=== PATIENT | female | born 1945 | race Caucasian/White ===

== ENCOUNTER 2023-05-08 12:45 | Emergency (ER) | payer MEDICARE, SELFPAY ==
[2023-05-08 12:54] VITALS: BP 124/60; PULSE 74; RESP 16; TEMP 36.8; O2SAT 94; BMI 23.8
--- NOTE | 2023-05-08 15:56 | CT_ITS ---
[address] [address] Patient Name: JESSICA PATHAK MRN: [id number] date: 1945 Sex: F Assigned Patient Location: ER Current Patient Location: ER Accession/Order Number: [id number] Exam Date: 05/08/2023 17:15 Report Date: 05/08/2023 18:21 At the request of: EMILIE ROMERO Procedure: CT abdomen pelvis w con EXAMINATION: CT abdomen pelvis w con, 05/08/2023 2:15 PM PST HISTORY: Abd pain, N?V COMPARISON: None. TECHNIQUE: CT scan of the abdomen and pelvis was performed with IV contrast. CT dose reduction technique was used, including Automated Exposure Control. FINDINGS: Lung: No significant finding. Liver: Moderate intrahepatic bile duct dilation. Gallbladder: Mildly distended gallbladder. Mild pericholecystic edema. The common bile duct is dilated with transition at the ampulla. There is a small duodenal diverticulum at the ampulla. There are calcifications of the pancreatic head/neck parenchyma. No visualized obstructing gallstone or mass. Mildly dilated pancreatic duct. Spleen: No significant finding. Pancreas: As above. Adrenal glands: No significant finding. Kidneys, ureters and bladder: Multiple right-sided simple cyst. No hydronephrosis. Bladder is unremarkable. Bowel: No evidence of bowel obstruction. No findings of appendicitis. Peritoneum/retroperitoneum: No significant finding. Lymph nodes: No significant finding. Vessels: Heavy scattered atherosclerotic calcification. 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 Body wall: No significant finding. Reproductive: No significant finding. Bones: No significant finding. CT/CT abdomen pelvis w con IMPRESSION: Findings concerning for biliary obstruction. Common bile duct, gallbladder and intrahepatic bile ducts are dilated. Mild pericholecystic edema. Small diverticulum at the ampulla noted. No measurable suspicious mass. Sequela of chronic pancreatitis is present. Likely underlying benign or malignant stricture or choledocholithiasis. Correlate with biochemical markers and consider MRCP. Electronically authenticated by: SAMRA PEREA Date: 05/08/2023 18:21
--- NOTE | 2023-05-08 15:56 | ECG_ITS ---
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
--- NOTE | 2023-05-08 15:58 | ED.ABDPAIN1 ---
Documented by User: Ford Perkins MD 05/08/23 16:01 HPI - Abdominal Pain General Chief Complaint: Abdominal Pain Stated Complaint: STOMACH PAIN Time Seen by Provider: 05/08/23 15:50 Source: family Mode of arrival: Wheelchair History of Present Illness HPI narrative: 77-year-old female presents for abdominal pain. It started yesterday and possibly the day before yesterday and she threw up last night. She is not complaining of chest pain or fever or hematemesis. No diarrhea or constipation. family reports that she's had an issue with her gallbladder before and several months ago she was at a hospital in [place] and she was told that she had passed a gallstone into her bile duct. It is not clear about the outcome of that event. Related Data Allergies Allergy/AdvReac Type Severity Reaction Status Date / Time lisinopril Allergy Severe Verified 05/08/23 12:59 Review of Systems ROS Narrative A ten point review of systems is negative except as noted above. Exam Narrative Exam Narrative: Nurses note and vital signs reviewed and patient is not hypoxic. General: The patient appears well and in no apparent distress. Patient is resting comfortably on cart. Skin: Warm, dry, no pallor noted. There is no rash noted. Head: Normocephalic, atraumatic Eye: Normal conjunctiva, no drainage Ears, Nose, Mouth, and Throat: oral mucosa is moist. Nares patent. Cardiovascular: Regular Rate and Rhythm Respiratory: Patient is in no distress, no accessory muscle use, lungs are clear to auscultation, no wheezing, rales or rhonchi Back: non-tender GI: diffuse tenderness without distention. Musculoskeletal: The patient has no evidence of calf tenderness, no pitting edema, symmetrical pulses noted bilaterally Neurological: A&O, normal speech Psychiatric: Cooperative Constitutional Vital Signs, click to edit/add: Last Vital Signs Temp 98.3 F 05/08/23 12:54 Pulse 74 05/08/23 12:54 Resp 16 05/08/23 12:54 BP 124/60 05/08/23 12:54 Pulse Ox 94 L 05/08/23 12:54 O2 Del Method Room Air 05/08/23 15:39 Course Vital Signs Vital signs: Vital Signs Temperature 98.3 F 05/08/23 12:54 Pulse Rate 74 05/08/23 12:54 Respiratory Rate 16 05/08/23 12:54 Blood Pressure 124/60 05/08/23 12:54 Pulse Oximetry 94 L 05/08/23 12:54 Oxygen Delivery Method Room Air 05/08/23 12:54 Temperature 98.3 F 05/08/23 12:54 Pulse Rate 74 05/08/23 12:54 Respiratory Rate 16 05/08/23 12:54 Blood Pressure 124/60 05/08/23 12:54 Pulse Oximetry 94 L 05/08/23 12:54 Oxygen Delivery Method Room Air 05/08/23 15:39 MDM - Abdominal Pain Lab Data Labs: Lab Results 05/08/23 Range/Units 16:10 WBC 9.4 (4.0-11.0) 10^3/uL RBC 4.13 L (4.20-5.40) 10^6/uL Hgb 12.9 (12.0-16.0) g/dL Hct 38.8 (36.0-48.0) % MCV 93.9 (81.0-99.0) fL MCH 31.2 (26.7-34.0) pg MCHC 33.2 (29.9-35.2) g/dL RDW 13.9 (11.0-15.0) % Plt Count 125 L (150-450) 10^3/uL MPV 11.1 (9.5-13.5) fL Seg Neuts % (Manual) 74.0 Band Neutrophils % 8.0 H (0-5) % Lymphocytes % (Manual) 8.0 L (20.5-60.0) % Monocytes % (Manual) 8.0 (1.7-12.0) % Eosinophils % (Manual) 2.0 (0.9-7.0) % Basophils % (Manual) 0.0 L (0.2-2.0) % Neutrophils # (Manual) 6.95 H (1.4-6.5) 10^3/uL Band Neutrophils # 0.8 H (0.0-0.3) 10^3/uL Lymphocytes # (Manual) 0.75 L (1.20-3.80) 10^3/uL Monocytes # (Manual) 0.75 (0.30-0.80) 10^3/uL Eosinophils # (Manual) 0.18 (0.00-0.70) 10^3/uL Basophils # (Manual) 0.00 (0.00-0.10) 10^3/uL Anisocytosis 1+ Sodium 129 L (136-145) mmol/L Potassium 3.7 (3.5-5.1) mmol/L Chloride 94 L (98-107) mmol/L Carbon Dioxide 29.6 (21.0-32.0) mmol/L Anion Gap 9.1 BUN 22.0 H (7.0-18.0) mg/dL Creatinine 0.87 (0.55-1.02) mg/dL Est GFR ( Amer) >60 (>=60) Est GFR (Non-Af Amer) >60 (>=60) BUN/Creatinine Ratio 25.3 Glucose 242 H (74-106) mg/dL Calcium 9.7 (8.5-10.1) mg/dL Total Bilirubin 3.6 H (0.2-1.0) mg/dL Direct Bilirubin 2.9 H* (0.0-0.2) mg/dL AST 267 H (15-37) U/L ALT 482 H (14-59) U/L Alkaline Phosphatase 400 H (46-116) U/L Total Protein 7.9 (6.4-8.2) g/dL Albumin 3.1 L (3.4-5.0) g/dL Globulin 4.8 g/dL Albumin/Globulin Ratio 0.6 Amylase 91 (25-115) U/L Lipase 295.0 H (16.0-77.0) U/L Discharge Plan Discharge Chief Complaint: Abdominal Pain Clinical Impression: Bile duct obstruction, Acute cholecystitis Patient Disposition: [facility] Time of Disposition Decision: 22:15 [facility] Good Mode of Transportation: EMS Referrals: Physician,Non-Staff, [Primary Care Provider] - 1 week Documented by User: Hiro Guzmán MD 05/08/23 22:16 HPI - Abdominal Pain General Chief Complaint: Abdominal Pain Stated Complaint: STOMACH PAIN Time Seen by Provider: 05/08/23 15:50 Related Data Allergies Allergy/AdvReac Type Severity Reaction Status Date / Time lisinopril Allergy Severe Verified 05/08/23 12:59 Exam Constitutional Vital Signs, click to edit/add: Last Vital Signs Temp 98.3 F 05/08/23 12:54 Pulse 74 05/08/23 12:54 Resp 16 05/08/23 12:54 BP 124/60 05/08/23 12:54 Pulse Ox 94 L 05/08/23 12:54 O2 Del Method Room Air 05/08/23 15:39 Course Vital Signs Vital signs: Vital Signs Temperature 98.3 F 05/08/23 12:54 Pulse Rate 74 05/08/23 12:54 Respiratory Rate 16 05/08/23 12:54 Blood Pressure 124/60 05/08/23 12:54 Pulse Oximetry 94 L 05/08/23 12:54 Oxygen Delivery Method Room Air 05/08/23 12:54 Temperature 98.3 F 05/08/23 12:54 Pulse Rate 74 05/08/23 12:54 Respiratory Rate 16 05/08/23 12:54 Blood Pressure 124/60 05/08/23 12:54 Pulse Oximetry 94 L 05/08/23 12:54 Oxygen Delivery Method Room Air 05/08/23 15:39 MDM - Abdominal Pain MDM Narrative Medical decision making narrative: Signout note: Labs and imaging reviewed. Care was signed out to me with transfer pending. Patient seen and evaluated the bedside. Her abdomen is benign. Her vitals are stable. Her pain is controlled. Patient has a transaminitis, elevated bilirubin. She has a common bile duct is dilated on CT scan with evidence of acute cholecystitis. I was able to review through [facility]. 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 She has had two ERCPs in the past with inability to fully cannulate the distal duct. This was at [facility] in [place], where she reports she will never return. Given that we do not have gastrointestinal with capability for ERCP at this facility she will need transfer. She'll need surgical and gastrointestinal evaluation for likely ERCP rendezvous. Case was discussed including history, exam, diagnostic findings with JANES Velez who is taking call for [facility]. After they discussed the patient with general surgery there and accepted the patient to the hospitalist service (Dr. Nunez). Patient was transported to [facility] for continuing evaluation of her acute on chronic bile duct obstruction/acute cholecystitis. Hiro Guzmán DO, FAAEM Lab Data Labs: Lab Results 05/08/23 Range/Units 16:10 WBC 9.4 (4.0-11.0) 10^3/uL RBC 4.13 L (4.20-5.40) 10^6/uL Hgb 12.9 (12.0-16.0) g/dL Hct 38.8 (36.0-48.0) % MCV 93.9 (81.0-99.0) fL MCH 31.2 (26.7-34.0) pg MCHC 33.2 (29.9-35.2) g/dL RDW 13.9 (11.0-15.0) % Plt Count 125 L (150-450) 10^3/uL MPV 11.1 (9.5-13.5) fL Seg Neuts % (Manual) 74.0 Band Neutrophils % 8.0 H (0-5) % Lymphocytes % (Manual) 8.0 L (20.5-60.0) % Monocytes % (Manual) 8.0 (1.7-12.0) % Eosinophils % (Manual) 2.0 (0.9-7.0) % Basophils % (Manual) 0.0 L (0.2-2.0) % Neutrophils # (Manual) 6.95 H (1.4-6.5) 10^3/uL Band Neutrophils # 0.8 H (0.0-0.3) 10^3/uL Lymphocytes # (Manual) 0.75 L (1.20-3.80) 10^3/uL Monocytes # (Manual) 0.75 (0.30-0.80) 10^3/uL Eosinophils # (Manual) 0.18 (0.00-0.70) 10^3/uL Basophils # (Manual) 0.00 (0.00-0.10) 10^3/uL Anisocytosis 1+ Sodium 129 L (136-145) mmol/L Potassium 3.7 (3.5-5.1) mmol/L Chloride 94 L (98-107) mmol/L Carbon Dioxide 29.6 (21.0-32.0) mmol/L Anion Gap 9.1 BUN 22.0 H (7.0-18.0) mg/dL Creatinine 0.87 (0.55-1.02) mg/dL Est GFR ( Amer) >60 (>=60) Est GFR (Non-Af Amer) >60 (>=60) BUN/Creatinine Ratio 25.3 Glucose 242 H (74-106) mg/dL Calcium 9.7 (8.5-10.1) mg/dL Total Bilirubin 3.6 H (0.2-1.0) mg/dL Direct Bilirubin 2.9 H* (0.0-0.2) mg/dL AST 267 H (15-37) U/L ALT 482 H (14-59) U/L Alkaline Phosphatase 400 H (46-116) U/L Total Protein 7.9 (6.4-8.2) g/dL Albumin 3.1 L (3.4-5.0) g/dL Globulin 4.8 g/dL Albumin/Globulin Ratio 0.6 Amylase 91 (25-115) U/L Lipase 295.0 H (16.0-77.0) U/L Discharge Plan Discharge Chief Complaint: Abdominal Pain Clinical Impression: Bile duct obstruction, Acute cholecystitis Patient Disposition: [facility] Time of Disposition Decision: 22:15 Discharge location: Dr. Enrique Siddiqi Condition: Good Mode of Transportation: EMS Referrals: Physician,Non-Staff, MD [Primary Care Provider] - 1 week
[2023-05-08] MEDS: ONDANSETRON PF 4 MG/2 ML VIAL IV (16:22)
[2023-05-08] MEDS: 0.9 % SODIUM CHLORIDE 500 ML IV (16:22)
[2023-05-08 16:42] LABS: Hematocrit 38.8 % (36.0-48.0); Hemoglobin 12.9 g/dL (12.0-16.0); Mean Corpuscular HGB Conc 33.2 g/dL (29.9-35.2); Mean Corpuscular Hemoglobin 31.2 pg (26.7-34.0); Mean Corpuscular Volume 93.9 fL (81.0-99.0); Mean Platelet Volume 11.1 fL (9.5-13.5); Platelet Count 125 10^3/uL (150-450); Red Blood Count 4.13 10^6/uL (4.20-5.40); Red Cell Distribution Width 13.9 % (11.0-15.0); White Blood Count 9.4 10^3/uL (4.0-11.0)
[2023-05-08 16:57] LABS: Alanine Aminotransferase 482 U/L (14-59); Albumin Globulin Ratio 0.6; Albumin Level 3.1 g/dL (3.4-5.0); Alkaline Phosphatase 400 U/L (46-116); Amylase 91 U/L (25-115); Anion Gap 9.1; Aspartate Amino Transferase 267 U/L (15-37); BUN Creatinine Ratio 25.3; Bilirubin Total 3.6 mg/dL (0.2-1.0); Calcium 9.7 mg/dL (8.5-10.1); Carbon Dioxide 29.6 mmol/L (21.0-32.0); Chloride 94 mmol/L (98-107); Estimated GFR (African America >60 (>=60); Estimated GFR (Non-African Ame >60 (>=60); Globulin 4.8 g/dL; Glucose 242 mg/dL (74-106); Potassium 3.7 mmol/L (3.5-5.1); Sodium 129 mmol/L (136-145); Total Protein 7.9 g/dL (6.4-8.2)
[2023-05-08 17:03] LABS: Anisocytosis 1+; Band Neutrophils Absolute 0.8 10^3/uL (0.0-0.3); Eosinophils Absolute Manual 0.18 10^3/uL (0.00-0.70); Lymphocytes Absolute Manual 0.75 10^3/uL (1.20-3.80); Monocytes Absolute Manual 0.75 10^3/uL (0.30-0.80); Segmented Neut Absolute Manual 6.95 10^3/uL (1.4-6.5)
[2023-05-08 17:06] LABS: Bilirubin Direct 2.9 mg/dL (0.0-0.2)
[2023-05-08] MEDS: PIPERACILLIN SODIUM/TAZOBACTAM 3.375 GM in 0.9 % SODIUM CHLORIDE 50 ML IV (19:42)
== END 2023-05-08 23:50 | disposition short-term general hospital (02) ==
PROVIDERS: Emergency Medicine; Emergency Provider Student in an Organized Health Care Education/Training Program; Family Provider Internal Medicine
DX: K83.1 Obstruction of bile duct (principal); K81.0 Acute cholecystitis
CPT/HCPCS: 36415; 74177; 80048; 80076; 81001; 82150; 83690; 85027; 87040; 93005; 96365; 96366; 96375; 99285; Q9967